=== PATIENT | female | born 1960 | race Caucasian/White ===

== ENCOUNTER 2020-10-20 10:56 | Emergency (ER) | payer MEDICARE, SELFPAY ==
--- NOTE | 2020-10-20 11:03 | ED.GENADULT ---
HPI - General Adult General Chief complaint: Dizziness Stated complaint: Nauseous/Dizziness Time Seen by Provider: 10/20/20 11:20 Source: patient and RN notes reviewed Mode of arrival: ambulatory Limitations: no limitations History of Present Illness HPI narrative: 60-year-old female with a history of cerebral palsy presents with concern for an episode of dizziness, one episode of vomiting this morning. Reports when she woke up she had a feeling of the room spinning. She denies any current headache, past headache, worst headache of her life. She denies any weakness in any extremity, problems with confusion, problems with with speech, problems with swallowing, abdominal pain, diarrhea, fever, body aches, chills, sweats. Denies any nasal congestion, rhinorrhea, ear pain. Reports she had a similar instance that happened several months ago, she was not seen by medical provider for that. Patient reports normal appetite, able to tolerate food and liquids. MD complaint: Dizziness Related Data Home Medications Medication Instructions Recorded Confirmed meloxicam 15 mg PO DAILY 10/20/20 10/20/20 omeprazole 40 mg PO DAILY 10/20/20 10/20/20 paroxetine HCl 40 mg PO DAILY 10/20/20 10/20/20 Allergies Allergy/AdvReac Type Severity Reaction Status Date / Time No Known Allergies Allergy Verified 10/20/20 11:00 Review of Systems Review of Systems: Narrative: CONSTITUTIONAL: Denies malaise, chills, sweats, or fever. EYES: Denies visual changes, redness, or discharge. ENT: Denies rhinorrhea, congestion, sinus pain, otalgia or sore throat. CARDIOVASCULAR: Denies chest pain, palpitations, or edema. RESPIRATORY: Denies cough or dyspnea. GASTROINTESTINAL: Denies abdominal pain, diarrhea, bloody, or mucous stools. Reports nausea, one episode of vomiting MUSCULOSKELETAL: Denies back pain, joint pain, or myalgia. NEUROLOGIC: Denies numbness, weakness, or headache. Reports 1 episode of room spinning dizziness PSYCHIATRIC: Denies anxiety or depression. All systems reviewed & are unremarkable except as noted in HPI and below PMFSH Comments At time of signature, agree with nursing past medical, surgical, social and family history. There is no relevant family history pertinent to the presenting complaint Exam Narrative: Exam Narrative: GENERAL: Well-appearing, well-nourished, and in no acute distress. HEAD: Normocephalic, atraumatic. EYES: PERRLA, conjunctivae clear, and EOMI. No nystagmus. ENT: Nares clear, turbinates pink, no rhinorrhea or epistaxis. Mucous membranes moist. TM pearly briggs with sharp light reflex bilaterally; no tragal tenderness. Oropharynx without erythema or lesions. Tonsils not enlarged and without exudate. NECK: Supple. No lymphadenopathy. No jugular venous distension, thyromegaly, or carotid bruits. Carotids were easily palpable bilaterally. CHEST: No respiratory distress. Clear to auscultation. No bony deformities, no asymmetry. Speaks in full sentences. HEART: Regular rate and rhythm. No murmur heard. Normal peripheral pulses. ABDOMEN: Soft, nontender, nondistended, normal active bowel sounds, no palpable masses. EXTREMITIES: Normal range of motion. No edema. Normal strength and sensation. SKIN: Warm, dry, no rash. NEURO: Alert and oriented x3. No focal deficits. Cranial nerves II through XII grossly intact. Goodrich-Hallpike test negative PSYCH: Normal mood and affect Course Course Emergency Course: Discussed limited diagnostic capability at the [facility] for dizziness. Discussed transfer to the emergency room. Patient and her mother discussed transfer, deny transfer at this time. Reports they understand reasons why they should go to the emergency room if symptoms worsen or change. Patient is aware of diagnosis, understands and agrees to treatment plan. Anticipatory guidance given. Patient agrees to follow-up as directed and is aware of reasons to seek care at the emergency department. Portions of this record may have been
[2020-10-20 11:15] VITALS: BP 144/98; PULSE 79; RESP 18; TEMP 36.7; O2SAT 98
[2020-10-21 20:38] LABS: SARS-CoV-2 RNA PCR Negative
== END 2020-10-20 11:40 | disposition home or self-care (01) ==
PROVIDERS: Emergency Provider Nurse Practitioner; PCP Nurse Practitioner Adult Health
DX: R42 Dizziness and giddiness (principal); Z20.822 Contact with and (suspected) exposure to COVID-19; G80.9 Cerebral palsy, unspecified; K21.9 Gastro-esophageal reflux disease without esophagitis; M19.90 Unspecified osteoarthritis, unspecified site
CPT/HCPCS: 99203; C9803; G0463; U0003; U0005

== ENCOUNTER 2022-08-02 15:08 | Emergency (ER) | payer MEDICARE, SELFPAY ==
[2022-08-02 15:14] VITALS: BP 180/112; PULSE 114; RESP 18; TEMP 37.2; O2SAT 98
--- NOTE | 2022-08-02 17:47 | ED.GENADULT ---
HPI - General Adult General Chief complaint: Burn/Smoke Inhalation Stated complaint: right arm burn Time Seen by Provider: 08/02/22 17:35 Source: patient, RN notes reviewed and old records reviewed Mode of arrival: ambulatory Limitations: no limitations History of Present Illness HPI narrative: 62-year-old female who presents to [facility] with complaints of sustaining a burn to her right inner forearm today with blistering of skin and skin peeling of top layer of burn with some surrounding redness.Patient reports that she spilled hot soup on her inner right arm just prior to arrival. Patient reports that she rinsed burn tissue area with cold water immediately. MD complaint: 2nd degree burn right inner arm Onset (ago): hour(s) (prior to arrival) Severity scale (1-10): 2 Treatments prior to arrival: other (rinsed with cold water) Related Data Home Medications Medication Instructions Recorded Confirmed meloxicam 15 mg tablet 15 mg PO DAILY 10/20/20 08/02/22 omeprazole 40 mg capsule,delayed 40 mg PO DAILY 10/20/20 08/02/22 release paroxetine HCl 40 mg tablet 40 mg PO DAILY 10/20/20 08/02/22 Allergies Allergy/AdvReac Type Severity Reaction Status Date / Time No Known Allergies Allergy Verified 10/20/20 11:00 Review of Systems Review of Systems: CONSTITUTIONAL: Denies fever, chills, or sweats. EYES: Denies visual changes, redness, or discharge. ENT: Denies rhinorrhea, congestion, sore throat, or otalgia. CARDIOVASCULAR: Denies chest pain, palpitations, or edema. RESPIRATORY: Denies cough or dyspnea. GASTROINTESTINAL: Denies abdominal pain, nausea, vomiting, or diarrhea. GENITOURINARY: Denies dysuria or hematuria. SKIN: Denies rash or itching.patient has 2nd degree burn to the inner right forearm which occurred today from hot soup spilling on arm, total area of redness 6cmX30 cm with tissue peeled off 4cm X20 cm area no weeping noted from tissue. MUSCULOSKELETAL: Denies back pain, joint pain, or myalgia. X 20cm area NEUROLOGIC: Denies headache, numbness, or weakness. PSYCHIATRIC: Positive for history of anxiety or depression. All systems reviewed & are unremarkable except as noted in HPI and below PMFSH Past Medical History Medical History (Updated 12/12/22 @ 21:54 by Magdalene Banks NP) Anxiety with depression Arthritis Fracture of right fibula GERD (gastroesophageal reflux disease) Hypertension Surgical History Surgical History (Updated 08/07/22 @ 21:52 by Magdalene Banks NP) H/O breast biopsy x3 History of hysterectomy Social History Social History (Updated 08/07/22 @ 21:38 by Magdaelne Banks NP) Smoking status: Never smoker Gender identity (if verbalized by the patient): Female Comments At time of signature, agree with nursing past medical, surgical, social and family history. There is no relevant family history pertinent to the presenting complaint Exam Narrative: GENERAL: Well-appearing, well-nourished, and in no acute distress. HEAD: Normocephalic, atraumatic. EYES: PERRLA and EOMI. ENT: Nares clear, no rhinorrhea or epistaxis. Mucous membranes moist.TM's normal with good light reflex, throat pink with no lesions or swelling NECK: Supple. no lymphadenopathy CHEST: Clear to auscultation. No respiratory distress. HEART: Regular rate and rhythm. No murmur heard. Normal peripheral pulses. ABDOMEN: Soft, nontender, nondistended, normal active bowel sounds. EXTREMITIES: Normal range of motion. No edema. SKIN: Warm, dry, right inner forearm burn with top layer of skin removed with surrounding redness total area of redness 6cmX30 cm with tissue peeled off 4cm X 20 cm area no weeping noted from tissue rates pain 2/10, NEURO: No focal deficits. Alert and oriented x3. Course Course Emergency Course: Patient is aware of diagnosis, understands and agrees to treatment plan.? Anticipatory guidance given.? Patient agrees to follow-up as directed and is aware of reasons to seek care at the emerge
[2022-08-02 18:05] VITALS: BP 160/90
== END 2022-08-02 18:06 | disposition home or self-care (01) ==
PROVIDERS: Emergency Provider Registered Nurse; PCP Nurse Practitioner Family
DX: T22.211A Burn of second degree of right forearm, initial encounter (principal); X08.8XXA Exposure to other specified smoke, fire and flames, initial encounter; G80.9 Cerebral palsy, unspecified; I10 Essential (primary) hypertension; K21.9 Gastro-esophageal reflux disease without esophagitis; M19.90 Unspecified osteoarthritis, unspecified site; N28.9 Disorder of kidney and ureter, unspecified
CPT/HCPCS: 99213; G0463